=== PATIENT | male | born 1945 | race Two or more races ===

== ENCOUNTER 2020-10-05 13:25 | Inpatient (IN) | payer MEDICARE, OTHER ==
[~2020-10-05] VITALS: Ht 182.9 cm; Wt 93.3 kg
[2020-10-05 14:23] LABS: Basophils # (auto) 0 10 ^3/uL (0-0.2); Basophils % (auto) 0.4 % (0.0-2.0); Eosinophils # (auto) 0.1 10 ^3/uL (0-0.8); Hematocrit 35.9 % (41.0-53.0); Hemoglobin 11.8 g/dL (13.5-17.5); Lymphocytes # (auto) 1.8 10 ^3/uL (0.4-5.4); Lymphocytes % (auto) 15.8 % (10.0-50.0); Mean Corpuscular Hemoglobin 31.1 pg (28.0-32.0); Mean Corpuscular Hgb Conc. 32.8 g/dL (32.0-36.0); Mean Corpuscular Volume 94.7 fL (80.0-100.0); Monocytes # (auto) 0.8 10 ^3/uL (0-1.3); Monocytes % (auto) 6.8 % (0.0-12.0); Neutrophils # (auto) 8.4 10 ^3/uL (1.6-8.6); Platelet Count (auto) 315 10^3/uL (140-450); Red Blood Cells 3.79 10^6/uL (4.5-5.90); Red Cell Distribution Width 14.9 % (11.8-14.3); White Blood Cell 11.1 10^3/uL (4.4-10.8)
[2020-10-05 14:38] LABS: Albumin 3.2 g/dL (3.4-5.0); Anion Gap 9 (5-15); Aspartate Aminotransferase 26 U/L (15-37); Blood Urea Nitrogen 27 mg/dL (7-18); Calcium 10.1 mg/dL (8.5-10.1); Carbon Dioxide 22 mmol/L (21-32); Chloride 106 mmol/L (98-107); Potassium 4.1 mmol/L (3.5-5.1); Sodium 137 mmol/L (136-145)
[2020-10-05 14:43] LABS: Alanine Aminotransferase 17 U/L (16-61); Alkaline Phosphatase 59 U/L (45-117); BUN/Creatinine Ratio 11.4; Bilirubin, Total 0.2 mg/dL (0.2-1.0); GFR African American 35 mL/min; GFR Non-African American 29 mL/min; Total Protein 7.7 g/dL (6.4-8.2)
[2020-10-05 14:45] LABS: Glucose 38 mg/dL (74-106)
[2020-10-05] MEDS ORDERED: DEXTROSE 50% SYRINGE 50 ML IV ONE (14:54)
[2020-10-05] MEDS ORDERED: DEXTROSE (50%) 50ML SYRG IV ONE (15:00)
[2020-10-05] MEDS ORDERED: ACETAMINOPHEN 500 MG TAB PO PRN (15:30)
[2020-10-05] MEDS ORDERED: DOCUSATE CALCIUM 240 MG CAP PO PRN (15:30)
[2020-10-05] MEDS ORDERED: ONDANSETRON HCL 4 MG/2 ML VIAL IV PRN (15:30)
[2020-10-05] MEDS ORDERED: NITROGLYCERIN 0.4 MG SL TAB SL PRN (15:30)
[2020-10-05] MEDS ORDERED: hydrALAZINE HCL 20 MG/ML VL IV PRN (15:30)
[2020-10-05] MEDS ORDERED: LORazepam 0.5 MG TAB PO PRN (15:30)
[2020-10-05] MEDS ORDERED: SODIUM CHLORIDE 0.9% 1,000 ML IV SCH (15:30)
[2020-10-05] MEDS ORDERED: MORPHINE SULF INJ 2 MG/ML SYRINGE 1ML IV PRN ×2 (15:30)
[2020-10-05] MEDS: D5W/SOD CHLO 0.9% 1,000 ML IV SCH (17:00)
[2020-10-06 03:52] VITALS: BP 143/73
[2020-10-06 08:46] VITALS: BP 142/73
[2020-10-06 09:02] LABS: Basophils # (auto) 0.1 10 ^3/uL (0-0.2); Basophils % (auto) 0.7 % (0.0-2.0); Eosinophils # (auto) 0.2 10 ^3/uL (0-0.8); Eosinophils % (auto) 2.5 % (0.0-7.0); Hematocrit 36.9 % (41.0-53.0); Hemoglobin 12.2 g/dL (13.5-17.5); Lymphocytes # (auto) 3.2 10 ^3/uL (0.4-5.4); Lymphocytes % (auto) 32.9 % (10.0-50.0); Mean Corpuscular Hemoglobin 31.5 pg (28.0-32.0); Mean Corpuscular Hgb Conc. 33.1 g/dL (32.0-36.0); Mean Corpuscular Volume 95.1 fL (80.0-100.0); Monocytes # (auto) 0.7 10 ^3/uL (0-1.3); Monocytes % (auto) 7.1 % (0.0-12.0); Neutrophils # (auto) 5.5 10 ^3/uL (1.6-8.6); Neutrophils % (auto) 56.8 % (37.0-80.0); Nucleated Red Blood Cells % 0.1 %; Platelet Count (auto) 308 10^3/uL (140-450); Red Blood Cells 3.88 10^6/uL (4.5-5.90); Red Cell Distribution Width 14.9 % (11.8-14.3); White Blood Cell 9.7 10^3/uL (4.4-10.8)
[2020-10-06 09:29] LABS: Potassium 4.8 mmol/L (3.5-5.1)
[2020-10-06 09:51] LABS: Albumin 3.2 g/dL (3.4-5.0); BUN/Creatinine Ratio 13.2; Bilirubin, Total 0.3 mg/dL (0.2-1.0); Calcium 10.4 mg/dL (8.5-10.1); Total Protein 7.6 g/dL (6.4-8.2)
[2020-10-06] MEDS: PANTOPRAZOLE 40 MG TAB PO SCH (10:07)
[2020-10-06] MEDS: ENOXAPARIN SOD 40 MG/0.4 ML SYRINGE SC SCH (10:07)
[2020-10-06 12:01] LABS: Cholesterol 135 mg/dL (< 200); HDL Cholesterol 55 mg/dL (40-59); LDL Cholesterol 66 mg/dL (< 100); Triglycerides 174 mg/dL (< 150)
[2020-10-06 13:00] VITALS: BP 137/78
[2020-10-06] MEDS: D5W/SOD CHLO 0.9% 1,000 ML IV SCH (14:43)
[2020-10-06 16:30] LABS: Urine Bacteria FEW /hpf (None Seen); Urine Blood 1+ /uL (Negative); Urine Specific Gravity 1.012 (1.001-1.035); Urine WBC <1 /hpf (0 - 3)
[2020-10-06 17:10] VITALS: BP 137/55
[2020-10-06] MEDS ORDERED: TAM04C PO (17:38)
[2020-10-06] MEDS ORDERED: METF-371 PO (17:38)
[2020-10-06] MEDS ORDERED: CHOL500035 PO (17:38)
[2020-10-06] MEDS ORDERED: GABA300C10 PO (17:38)
[2020-10-06] MEDS ORDERED: FENO145T27 PO (17:38)
[2020-10-06] MEDS ORDERED: LOSA-69 PO (17:38)
[2020-10-06] MEDS ORDERED: SULF400T11 PO (17:38)
[2020-10-06] MEDS ORDERED: ATOR20TA50 PO (17:38)
[2020-10-06] MEDS ORDERED: HYDR12.56 PO (17:38)
[2020-10-06] MEDS ORDERED: GLIP5TAB12 PO (17:38)
[2020-10-06 22:00] VITALS: BP 134/76
[2020-10-07 05:00] VITALS: BP_SYST 129; BP_SYST 132; BP_DIAS 64; BP_DIAS 70
[2020-10-07 07:38] LABS: BUN/Creatinine Ratio 13.3; Calcium 9.4 mg/dL (8.5-10.1); Potassium 4.4 mmol/L (3.5-5.1)
[2020-10-07] MEDS: ENOXAPARIN SOD 40 MG/0.4 ML SYRINGE SC SCH (08:14)
[2020-10-07] MEDS: PANTOPRAZOLE 40 MG TAB PO SCH (08:14)
[2020-10-07 08:30] VITALS: BP 133/77
[2020-10-07 12:30] VITALS: BP 136/64
[2020-10-07 17:00] VITALS: BP 115/76
[2020-10-07] MEDS ORDERED: TAMSULOSIN HYDROCHLORIDE 0.4 MG CAP PO SCH (18:00)
[2020-10-07 21:58] VITALS: BP 132/72
[2020-10-08 05:01] VITALS: BP 108/64
[2020-10-08 06:30] LABS: Potassium 4.2 mmol/L (3.5-5.1)
[2020-10-08 06:46] LABS: BUN/Creatinine Ratio 16.7; Calcium 10.1 mg/dL (8.5-10.1); Magnesium 1.8 mg/dL (1.6-2.6)
[2020-10-08] MEDS: ENOXAPARIN SOD 40 MG/0.4 ML SYRINGE SC SCH (07:56)
[2020-10-08] MEDS: PANTOPRAZOLE 40 MG TAB PO SCH (07:56)
[2020-10-08 13:00] VITALS: BP 122/57
[2020-10-08] MEDS ORDERED: METF-370 PO (13:46)
== END 2020-10-08 14:42 | disposition home health service (06) | DRG 637 ==
LOC: ER 13:25 → EDBD 13:25 → TELE 13:26 → TELE-EAST 10-06 03:14
PROVIDERS: ADMIT Family Medicine; ATTEND Internal Medicine
DX: E11.649 Type 2 diabetes mellitus with hypoglycemia without coma (principal); G93.41 Metabolic encephalopathy; R65.10 Systemic inflammatory response syndrome (SIRS) of non-infectious origin without acute organ dysfunction; N17.0 Acute kidney failure with tubular necrosis; D63.8 Anemia in other chronic diseases classified elsewhere; E78.5 Hyperlipidemia, unspecified; R00.0 Tachycardia, unspecified; N18.32 Chronic kidney disease, stage 3b; T38.3X5A Adverse effect of insulin and oral hypoglycemic [antidiabetic] drugs, initial encounter; E11.21 Type 2 diabetes mellitus with diabetic nephropathy; I49.9 Cardiac arrhythmia, unspecified; I12.9 Hypertensive chronic kidney disease with stage 1 through stage 4 chronic kidney disease, or unspecified chronic kidney disease; E11.22 Type 2 diabetes mellitus with diabetic chronic kidney disease; N40.0 Benign prostatic hyperplasia without lower urinary tract symptoms; Z20.822 Contact with and (suspected) exposure to COVID-19; Z90.49 Acquired absence of other specified parts of digestive tract; Y92.89 Other specified places as the place of occurrence of the external cause
CPT/HCPCS: 36415; 70450; 71045; 80048; 80053; 80061; 81001; 82306; 82962; 83036; 83735; 84443; 84484; 85025; 87086; 87426; 93005; 93306; 96374; 97163; G0378; J7042